=== PATIENT | male | born 1950 | race Caucasian/White ===

== ENCOUNTER 2021-09-23 16:30 | Emergency (ER) | payer OTHER ==
[~2021-09-23] VITALS: Ht 182.9 cm; Wt 142.9 kg
[2021-09-23 16:30] VITALS: BP_SYST 112
--- NOTE | 2021-09-23 17:00 | NUR ---
Patient to ER bed 6 for evaluation. Side rails up. Assumed care. Sherrifs at bedside.
--- NOTE | 2021-09-23 17:11 | NUR ---
pt. trish RODRIGUEZ and [place] [employer] in legal custody with c/o anxiety, states he has CHF and is now having SOB, pt states, "I know whats gonna happen if I get in the police car, I won't be able to breathe". O2 sat 93 to 95% on room air, lungs auscultated clear, pt. has BLE pitting edema and skin darkened red, has a small superficial hand laceration to right hand, denies pain to hand.
--- NOTE | 2021-09-23 18:13 | NUR ---
Spoke with Dr. Vences regarding pt. hx. of CHF order for EKG
--- NOTE | 2021-09-23 18:54 | NUR ---
MATHEUS Thao at bedside examining patient.
[2021-09-23] MEDS ORDERED: FUROSEMIDE 20 MG TABLET PO ONE (19:30)
[2021-09-23 19:33] LABS: BASOPHILS # (AUTO) 0.1 K/uL (0.0-0.2); BASOPHILS % (AUTO) 0.9 % (0.0-2.0); EOSINOPHILS # (AUTO) 0.2 K/uL (0.0-0.4); EOSINOPHILS % (AUTO) 1.8 % (0.0-4.0); HEMATOCRIT 48.8 % (36-54); HEMOGLOBIN 15.8 g/dL (14.0-18.0); LYMPHOCYTES # (AUTO) 2.1 K/uL (1.0-5.5); LYMPHOCYTES % (AUTO) 18.5 % (20.5-51.5); MEAN CORPUSCULAR HEMOGLOBIN 32 pg (27-31); MEAN CORPUSCULAR HGB CONC 32 % (32-36); MEAN CORPUSCULAR VOLUME 98 fL (79.0-98.0); MONOCYTES # (AUTO) 1.3 K/uL (0.0-1.0); NEUTROPHILS # (AUTO) 7.5 K/uL (1.8-7.7); NEUTROPHILS % (AUTO) 66.8 % (40.0-70.0); PLATELET COUNT (AUTO) 281 K/uL (130-430); RED CELL DISTRIBUTION WIDTH 14.3 % (9.0-15.0); WHITE BLOOD COUNT (AUTO) 11.2 K/uL (4.8-10.8)
--- NOTE | 2021-09-23 19:33 | NUR ---
radiology at bedside for abdias xray
[2021-09-23 20:07] LABS: ALANINE AMINOTRANSFERASE 33 U/L (12-78); ALBUMIN 3.3 g/dL (3.4-4.8); ASPARTATE AMINOTRANSFERASE 24 U/L (10-37); CREATININE 1.25 mg/dL (0.55-1.30); GLUCOSE 102 mg/dL (70-99); TOTAL BILIRUBIN 0.4 mg/dL (0.0-1.0); UREA NITROGEN, BLOOD 25 mg/dL (8-21)
[2021-09-23 20:08] LABS: GFR AFRICAN AMERICAN 74 mL/min (>90)
[2021-09-23 20:14] LABS: ANION GAP 6 (5-15); CHLORIDE 104 mmol/L (98-107); POTASSIUM 4.6 mmol/L (3.5-5.1); SODIUM SERUM 143 mmol/L (136-145)
--- NOTE | 2021-09-23 21:03 | NUR ---
Patient and sherrif given written and verbal discharge instructions and verbalizes understanding. ER Dr. Vences discussed with patient the results and treatment provided. Patient in stable condition. ID arm band removed. Pain Scale 0. Opportunity for questions provided and answered.
[2021-09-23 21:04] VITALS: BP_SYST 142
== END 2021-09-23 21:03 ==
LOC: SED 16:30
DX: S61.411A Laceration without foreign body of right hand, initial encounter (principal); I50.9 Heart failure, unspecified; I25.2 Old myocardial infarction; F17.210 Nicotine dependence, cigarettes, uncomplicated; Y04.0XXA Assault by unarmed brawl or fight, initial encounter; Y93.89 Activity, other specified; Y92.89 Other specified places as the place of occurrence of the external cause; Y99.8 Other external cause status
CPT/HCPCS: 36415; 71045; 80053; 83880; 84484; 85025; 93005; 99285